=== PATIENT | male | born 1965 | race African-American/Black ===

== ENCOUNTER 2020-01-05 20:36 | Inpatient (IN) | payer BC ==
[~2020-01-05] VITALS: Ht 190.5 cm; Wt 132.9 kg
[2020-01-05 22:07] LABS: Basophils # (auto) 0.1 10 ^3/uL (0-0.2); Basophils % (auto) 0.9 % (0.0-2.0); Eosinophils # (auto) 0.2 10 ^3/uL (0-0.8); Eosinophils % (auto) 2.1 % (0.0-7.0); Hematocrit 43.1 % (41.0-53.0); Hemoglobin 14.8 g/dL (13.5-17.5); Lymphocytes # (auto) 3.4 10 ^3/uL (0.4-5.4); Lymphocytes % (auto) 35.3 % (10.0-50.0); Mean Corpuscular Hemoglobin 30.3 pg (28.0-32.0); Mean Corpuscular Hgb Conc. 34.4 g/dL (32.0-36.0); Mean Corpuscular Volume 88.3 fL (80.0-100.0); Monocytes # (auto) 1.1 10 ^3/uL (0-1.3); Neutrophils # (auto) 4.9 10 ^3/uL (1.6-8.6); Neutrophils % (auto) 50.7 % (37.0-80.0); Nucleated Red Blood Cells % 0.2 %; Platelet Count (auto) 209 10^3/uL (140-450); Red Blood Cells 4.88 10^6/uL (4.5-5.90); Red Cell Distribution Width 14.5 % (11.8-14.3); White Blood Cell 9.7 10^3/uL (4.4-10.8)
[2020-01-05 22:24] LABS: Urine Bacteria FEW /hpf (None Seen); Urine Blood TRACE /uL (Negative); Urine Specific Gravity 1.017 (1.001-1.035); Urine WBC 1 /hpf (0 - 3)
[2020-01-05 22:25] LABS: Albumin 3.6 g/dL (3.4-5.0); Anion Gap 6 (5-15); Blood Urea Nitrogen 14 mg/dL (7-18); Calcium 9.2 mg/dL (8.5-10.1); Carbon Dioxide 24 mmol/L (21-32); Chloride 107 mmol/L (98-107); Glucose 94 mg/dL (74-106); Potassium 3.6 mmol/L (3.5-5.1); Sodium 137 mmol/L (136-145)
[2020-01-05 22:33] LABS: Alanine Aminotransferase 27 U/L (16-61); Alkaline Phosphatase 193 U/L (45-117); Aspartate Aminotransferase 12 U/L (15-37); BUN/Creatinine Ratio 23.7; Bilirubin, Total 0.3 mg/dL (0.2-1.0); GFR African American 184 mL/min; GFR Non-African American 152 mL/min; Total Protein 7.5 g/dL (6.4-8.2)
[2020-01-05] MEDS ORDERED: MORPHINE SULFATE 4 MG/ML SYR/VIAL IV ONE (23:30)
[2020-01-05] MEDS ORDERED: ONDANSETRON HCL 4 MG/2 ML VIAL IV ONE (23:30)
[2020-01-06] MEDS ORDERED: NITROGLYCERIN 0.4 MG SL TAB SL PRN (05:15)
[2020-01-06] MEDS ORDERED: MORPHINE SULFATE 4 MG/ML SYR/VIAL IV ONE (05:15)
[2020-01-06] MEDS ORDERED: ACETAMINOPHEN 325 MG TAB PO PRN (05:15)
[2020-01-06] MEDS ORDERED: ONDANSETRON HCL 4 MG/2 ML VIAL IV PRN (05:15)
[2020-01-06] MEDS ORDERED: TEMAZEPAM 15 MG CAP PO PRN (05:15)
[2020-01-06 05:55] LABS: INR 1.03 (0.9-1.15); Partial Thromboplastin Time 24.8 sec (23.0-31.2)
[2020-01-06] MEDS ORDERED: DIGOXIN (250MCG/ML) 2 ML AMPULE IV ONE (08:00)
[2020-01-06] MEDS: MORPHINE SULF INJ 2 MG/ML SYRINGE 1ML IV PRN ×2 (08:50→14:31)
[2020-01-06 09:15] VITALS: BP 105/52
--- NOTE | 2020-01-06 09:30 | NUR ---
Telemetry admit from ER LELO PARHAM admitted to Telemetry unit after verbal report received from RADHA Billy, ER. Patient oriented to Sue Domínguez, primary RN, unit, room, bed, and unit policies regarding patient care and visiting hours. Patient is awake, alert and oriented X4. No signs or symptoms of SOB, distress or pain. Patient on continuous telemetry monitoring, tele box #37, atrial fibrillation @ 109 bpm. IV to right antecubital, 20 gauge, patent and saline locked. All questions and concerns addressed, patient verbalized understanding. Bed locked, in lowest position, call light within reach, will continue to monitor Q 1 hour and PRN.
[2020-01-06] MEDS: ASPirin 81 mg TAB PO SCH ×2 (10:00→14:21)
[2020-01-06] MEDS: FAMOTIDINE 20 MG TAB PO SCH ×3 (10:00→22:13)
[2020-01-06] MEDS ORDERED: ENOXAPARIN SOD 40 MG/0.4 ML SYRINGE SC SCH (10:00)
[2020-01-06] MEDS ORDERED: amLODIPine BESYLATE 5 MG TAB PO SCH (10:00)
[2020-01-06] MEDS: APIXABAN 5 MG TAB PO SCH ×3 (10:00→22:13)
[2020-01-06] MEDS ORDERED: ATENOLOL 50 MG TAB PO SCH (10:00)
[2020-01-06 10:37] LABS: Free T3 8.39 pg/mL (2.3-4.2); Free T4 (Free Thyroxine) 0.94 ng/dL (0.89-1.76)
[2020-01-06] MEDS ORDERED: methIMAzole 5 MG TAB PO ONE (11:00)
[2020-01-06] MEDS ORDERED: LISI-285 PO (12:40)
[2020-01-06] MEDS ORDERED: AMLO-483 PO (12:40)
[2020-01-06] MEDS ORDERED: VARE0.5T PO (12:40)
[2020-01-06] MEDS ORDERED: TRAM50TA2 PO (12:40)
[2020-01-06] MEDS ORDERED: ATEN-60 PO (12:40)
[2020-01-06] MEDS ORDERED: IBUP600T27 PO (12:40)
[2020-01-06] MEDS ORDERED: ASPI81CH43 PO (12:40)
[2020-01-06] MEDS ORDERED: HYDR-4833 PO (12:40)
[2020-01-06] MEDS ORDERED: METH10TA87 PO (12:40)
--- NOTE | 2020-01-06 12:45 | NUR ---
CARDIOLITE Patient taken to Stress Lab via wheelchair, no distress noted upon departure.
[2020-01-06] MEDS ORDERED: ADENOSINE 106 MG in GIVE UN-DILUTED 0 ML IV STA (12:47)
[2020-01-06 13:00] VITALS: BP 141/86
[2020-01-06 13:08] VITALS: BP 150/76
--- NOTE | 2020-01-06 13:30 | NUR ---
CARDIOLITE Patient returned from Stress Lab via wheelchair, no distress noted upon return.
[2020-01-06] MEDS: methIMAzole 5 MG TAB PO SCH ×2 (14:00→22:13)
[2020-01-06] MEDS: traMADol HCL 50 MG TAB PO PRN ×2 (14:52→21:04)
[2020-01-06 17:00] VITALS: BP 159/86
--- NOTE | 2020-01-06 19:08 | NUR ---
Care endorsed to RADHA Redd,night nurse
--- NOTE | 2020-01-06 19:50 | NUR ---
Opening Shift Note Assumed care of patient, awake and alert. No S/S of distress/SOB or pain. Instructed on POC and to call for assist PRN. Bed in lowest locked position, call light within reach, side rails up x2. Will continue to monitor for changes Q1hr and PRN.
[2020-01-06 21:00] VITALS: BP 178/93
--- NOTE | 2020-01-06 21:15 | NUR ---
Hospitalist Called/paged HOSPITALIST called regarding elevated BP 178/93 HR 101 . Waiting for call back. Continue care.
[2020-01-06] MEDS ORDERED: ATORVASTATIN 20 MG TAB PO SCH (22:00)
[2020-01-06 22:30] VITALS: BP 130/68
--- NOTE | 2020-01-06 22:30 | NUR ---
BP recheck Hospitalist call back still pending. BP recheck decreased to 130/68. Will continue to monitor.
[2020-01-06] MEDS ORDERED: LABETALOL HCL 5 MG/ML 4ML SYRINGE IV ONE (23:00)
[2020-01-07] MEDS: traMADol HCL 50 MG TAB PO PRN (03:12)
[2020-01-07 05:00] VITALS: BP 128/86
[2020-01-07] MEDS: methIMAzole 5 MG TAB PO SCH ×2 (06:15→14:05)
[2020-01-07 06:31] LABS: BUN/Creatinine Ratio 22.2; Basophils # (auto) 0.1 10 ^3/uL (0-0.2); Basophils % (auto) 0.9 % (0.0-2.0); Calcium 8.4 mg/dL (8.5-10.1); Eosinophils # (auto) 0.3 10 ^3/uL (0-0.8); Eosinophils % (auto) 4.3 % (0.0-7.0); Hematocrit 38.5 % (41.0-53.0); Hemoglobin 13.1 g/dL (13.5-17.5); Lymphocytes # (auto) 3.3 10 ^3/uL (0.4-5.4); Mean Corpuscular Hemoglobin 30.1 pg (28.0-32.0); Mean Corpuscular Hgb Conc. 34.1 g/dL (32.0-36.0); Mean Corpuscular Volume 88.4 fL (80.0-100.0); Monocytes # (auto) 0.9 10 ^3/uL (0-1.3); Monocytes % (auto) 11.5 % (0.0-12.0); Neutrophils % (auto) 39.3 % (37.0-80.0); Nucleated Red Blood Cells % 0.2 %; Platelet Count (auto) 174 10^3/uL (140-450); Potassium 3.3 mmol/L (3.5-5.1); Red Blood Cells 4.35 10^6/uL (4.5-5.90); Red Cell Distribution Width 14.5 % (11.8-14.3); White Blood Cell 7.6 10^3/uL (4.4-10.8)
--- NOTE | 2020-01-07 08:00 | NUR ---
Opening Shift Note Assumed care of patient, awake, alert and oriented X4. No signs or symptoms of SOB, distress or pain. Patient on continuous telemetry monitoring, tele box #37, atrial fibrillation @ 87 bpm. IV to right antecubital, 20 gauge, patent and saline locked. All questions and concerns addressed, patient verbalized understanding. Bed locked, in lowest position, call light within reach, will continue to monitor Q 1 hour and PRN.
[2020-01-07 09:00] VITALS: BP 122/70
[2020-01-07] MEDS ORDERED: ATENOLOL 25 MG TAB PO SCH (10:00)
[2020-01-07] MEDS: APIXABAN 5 MG TAB PO SCH (10:19)
[2020-01-07] MEDS: FAMOTIDINE 20 MG TAB PO SCH (10:19)
[2020-01-07] MEDS: ASPirin 81 mg TAB PO SCH (10:19)
--- NOTE | 2020-01-07 11:30 | NUR ---
STRESS TEST RESULTS Mariusz Hassan paged to return call, Dr Davis requesting to have stress test report, pending patient's discharge home.
--- NOTE | 2020-01-07 11:55 | NUR ---
ROUNDS Dr Davis at bedside for rounds, new orders received and followed through. Patient updated on plan of care, verbalized understanding.
[2020-01-07 13:00] VITALS: BP 150/81
--- NOTE | 2020-01-07 14:27 | NUR ---
STRESS TEST RESULTS Message left with Dr Hernandez's office, per PBX, he's the on-call Certified Nurses Aide. Informed Dr Davis requesting [facility] Stress Test report from 01-05. Pending patient's discharge. Awaiting return call. Patient updated on plan of care, verbalized understanding.
--- NOTE | 2020-01-07 14:45 | NUR ---
STRESS TEST RESULTS Dr Sams returned call, verbalized Stress Test normal, communication order placed.
[2020-01-07 17:00] VITALS: BP 139/95
--- NOTE | 2020-01-07 17:11 | NUR ---
Discharge instructions given as ordered. Encourage to follow up with PMD as instructed. All questions and concerns addressed. Patient verbalized understanding. Medication reconciliation form completed and copy given to patient. IV removed with catheter intact, pressure dressing applied. Telemetry unit returned to ICU. Patient taken to vehicle via wheelchair with all personal belongings, accompanied by staff. No distress noted at time of departure.
== END 2020-01-07 17:35 | disposition home or self-care (01) | DRG 309 ==
LOC: ER 20:36 → TELE 20:37 → TELE-CENTR 01-06 09:06
PROVIDERS: ADMIT Nurse Practitioner; ATTEND Internal Medicine
DX: I48.91 Unspecified atrial fibrillation (principal); I20.0 Unstable angina; I10 Essential (primary) hypertension; E03.9 Hypothyroidism, unspecified; E05.00 Thyrotoxicosis with diffuse goiter without thyrotoxic crisis or storm; E66.9 Obesity, unspecified; Z79.891 Long term (current) use of opiate analgesic; Z88.0 Allergy status to penicillin; Z79.899 Other long term (current) drug therapy; Z79.01 Long term (current) use of anticoagulants; Z68.36 Body mass index [BMI] 36.0-36.9, adult
CPT/HCPCS: 36415; 71045; 78452; 80048; 80053; 81001; 83735; 83880; 84439; 84443; 84481; 84484; 85025; 85610; 85730; 93005; 93017; 93306; 96374; 96375; 96376; G0378; J0153; J2405